=== PATIENT | male | born 1950 | race Caucasian/White ===

== ENCOUNTER 2024-03-31 10:36 | Outpatient (RCR) | payer MEDICARE, BC, SELFPAY ==
[2024-03-31 12:22] LABS: Creatinine* 1.1 mg/dL (0.5-1.5); Estimated Glomerular Filt Rate 70 ml/min
== END 2024-09-27 23:59 | disposition home or self-care (01) ==
LOC: CCIC 10:36
PROVIDERS: Radiology Radiation Oncology; PCP Family Medicine; Visit Provider Clinical Nurse Specialist
DX: C61 Malignant neoplasm of prostate (principal)
CPT/HCPCS: 36415; 72195; 82565; 99211

== ENCOUNTER 2024-03-31 10:45 | Outpatient (CLI) | payer MEDICARE, BC, SELFPAY | END 2024-03-31 10:46 | disposition home or self-care (01) | PROVIDERS: PCP Family Medicine; Visit Provider Radiology Radiation Oncology | DX: C61 Malignant neoplasm of prostate (principal) | CPT/HCPCS: 72195 ==